=== PATIENT | male | born 1950 | race Caucasian/White ===

== ENCOUNTER 2018-06-19 19:28 | Inpatient (IN) | payer MEDICARE, SELFPAY ==
--- NOTE | 2018-06-19 10:40 | DI.CT.S_ITS ---
PROCEDURE: CT HEAD/BRAIN WO CON INDICATIONS: Decreased ability to move right arm TECHNIQUE: Noncontrast 4.5 mm thick angled axial sections acquired from the foramen magnum to the vertex, with coronal and sagittal reformats. For radiation dose reduction, the following was used: automated exposure control, adjustment of mA and/or kV according to patient size. COMPARISON: None. FINDINGS: Image quality: Excellent. CSF spaces: Basal cisterns are patent. No extra-axial fluid collections. The ventricles are symmetric in size and shape. Brain: No intracranial bleeds or masses. There is extensive cerebral volume loss for age, with resultant ventricular and sulcal prominence. There are periventricular and deep white matter chronic small vessel ischemic changes. There is intracranial internal carotid artery atherosclerosis. Skull and face: Calvarium and visualized facial bones appear intact, without suspicious lesions. Sinuses: Visualized sinuses and mastoids are clear. IMPRESSION: 1. No acute intracranial findings. This was discussed with MESSI Ward at 7:41 PM on 06/19/18. 2. Findings likely associated with chronic microvascular ischemic changes. Dictated by: Beverly Arndt M.D. on 06/19/2018 at 19:41 Approved by: Beverly Arndt M.D. on 06/19/2018 at 19:43
[2018-06-19 19:34] VITALS: BP 154/81; PULSE 68; RESP 18; TEMP 36.6; O2SAT 96
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
[2018-06-19 19:39] VITALS: BP 168/70; PULSE 82; RESP 19; TEMP 37.1; O2SAT 91; BMI 37.5
[2018-06-19 19:53] VITALS: BP 168/70; PULSE 95; RESP 18; O2SAT 93
[2018-06-19] MEDS: SODIUM CHLORIDE 0.9% 1,000 ML 150 ML IV (19:57)
[2018-06-19 19:59] LABS: Add Manual Diff / Slide Review NO; Basophils Percent Auto 0.9 % (0-2); Eosinophils Percent Auto 3.4 % (2-4); Hematocrit 45.8 % (41-53); Hemoglobin 16.1 g/dL (13.5-17.5); Lymphocytes Percent Auto 26.2 % (25-40); Mean Corpuscular HGB Conc 35.1 % (30-36); Mean Corpuscular Hemoglobin 35.8 PG (26-34); Mean Corpuscular Volume 102.1 fL (80-100); Monocytes Percent Auto 12.5 % (3-14); Neutrophils Absolute Auto 5500 /uL (1500-7000); Platelet Count 238 X10^3/uL (150-400); Red Blood Cell Count 4.48 X10^6/uL (4.5-5.9); Red Cell Distribution Width 12.2 % (11.6-14.8); White Blood Cell Count 9.7 X10^3/uL (4.5-11.0)
[2018-06-19 20:00] LABS: Prothrombin Time 11.3 SECONDS (10.1-12.7)
[2018-06-19 20:03] LABS: PTT Partial Thromboplastin Tim 27 SECONDS (26.4-36.2)
[2018-06-19 20:05] LABS: Blood Urea Nitrogen 12 mg/dL (9-20); Calcium 9.3 mg/dL (8.4-10.2); Carbon Dioxide 21 mmol/L (22-32); Chloride 105 mmol/L (98-107); Estimated Glomerular Filt Rate > 60.0 mL/min (>60); Glucose 124 mg/dL (80-110); HEMOLYSIS 32 (0-50); Potassium 4.3 mmol/L (3.4-5.1); Sodium 140 mmol/L (137-145)
[2018-06-19 21:00] VITALS: BP 172/87; PULSE 83; O2SAT 94
--- NOTE | 2018-06-19 21:47 | PC.NURSE ---
Patient ambulating without assistance to bathroom.
--- NOTE | 2018-06-19 22:48 | PC.NURSE ---
2029 Right leg strength continuing to improve. TPA ordered, but held at this time, due to symptom improvement. Provider is aware. Patient will be re-evaluated for continued improvement at 2144. Patient able to stand with some assistance.
[2018-06-19] MEDS: ASPIRIN 81 MG TAB 324 MG PO (22:54)
[2018-06-19 23:45] VITALS: BP 187/82; PULSE 82; RESP 22; TEMP 36.7; O2SAT 94
[2018-06-20] VITALS (11 sets, daily range): BP systolic 154–204; BP diastolic 60–99; PULSE 60–82; RESP 16–22; TEMP 36.3–36.7; O2SAT 95–98; BMI 37.5
--- NOTE | 2018-06-20 | DI.ECHO.S_ITS ---
[place] [facility]---------+ [facility] +---------+ : : [address] : : : : [id number] : : : : Phone: [phone]+ Echocardiogram Report + + :Name: EDGARDO SCHUMACHER Study Date: 06/20/2018 Height: 70 in : :[facility] Weight: 262 lb: : Gender: Male BSA: 2.3 m2 : :: 1950 Age: 67 yrs : :Reason For Study: MURMUR, TIA : : Performed By: Galdino Foely : :Referring: JOSE EDUARDO GORE : + + Interpretation Summary 1) Mild concentric left ventricular hypertrophy with normal size, wall motion, and systolic function (EF 65-70%). 2) Grossly normal right ventricular size and function. 3) Diastolic parameters suggest a pseudonormalization pattern, consistent with probable elevated filling pressures. 4) No significant valvular abnormalities. 5) The aortic root is borderline dilated at 4.1cm. 6) No prior Echo available for comparison. Procedure: A two-dimensional transthoracic echocardiogram with color flow and Doppler was performed. The study quality was technically difficult. A contrast injection of Definity was performed to improve assessment of LV function. There is no prior echocardiogram noted for this patient. The patient was in normal sinus rhythm during the exam. Left Ventricle: The left ventricle is normal in size. There is mild concentric left ventricular hypertrophy. The ejection fraction is estimated to be 65-70%. Left ventricular systolic function is normal. Left ventricular wall motion is normal. Diastolic parameters suggest a pseudonormalization pattern, consistent with probable elevated filling pressures. Right Ventricle: The right ventricle grossly appears normal in size with probable normal systolic function. Atria: Left atrial not well seen but it looks mildly enlarged grossly. The right atrium grossly appears normal in size. The interatrial septum is intact with no evidence for an atrial septal defect. Mitral Valve: The mitral valve is grossly normal. There is mild mitral regurgitation. Aortic Valve: The aortic valve is grossly normal. There is no aortic valve stenosis. No aortic regurgitation is present. Tricuspid Valve: The tricuspid valve is not well visualized, but is grossly normal. Pulmonary artery pressures cannot be estimated because of the lack of a measurable TR jet velocity. No tricuspid regurgitation. Pulmonic Valve: The pulmonic valve is not well visualized. Great Vessels: The aortic root is borderline dilated. The ascending aorta could not be visualized. The pulmonary artery is not well visualized, but is probably normal size. The IVC is of normal diameter and collapses greater than 50% with a sniff. This suggests a low right atrial pressure of 3 mm Hg. Pericardium/ Pleura There is no pericardial effusion. There is no pleural effusion. MMode/2D Measurements & Calculations LVIDd: 4.8 cm LVOT diam: 2.3 cm LVIDs: 3.2 cm Ao root diam: 4.1 cm FS: 32.8 % Ao Arch Diam (Prox Trans): 3.1 cm IVSd: 1.5 cm LVPWd: 1.4 cm LV braun. diameter/BSA (cm/m^2): 2.0 LV sys. diameter/BSA (cm/m^2): 1.4 LA A2 area: 20.6 cm2 RA long axis: 5.3 cm LA A4 area: 21.5 cm2 RA area: 15.6 cm2 LA length (vol): 5.8 cm RA vol: 39.3 ml LA vol: 64.8 ml RA : 16.8 ml/m2 LA vol index: 27.7 ml/m2 RVD1 (basal): 3.2 cm Doppler Measurements & Calculations Ao V2 max: 136.7 cm/sec LVOT Max Raad: 124.2 cm/sec Ao V2 mean: 99.4 cm/sec LV V1 max P.2 mmHg Ao max P.5 mmHg LV V1 VTI: 29.1 cm Ao mean P.4 mmHg CATHY(I,D): 4.1 cm2 Ao V2 VTI: 29.2 cm CATHY(V,D): 3.7 cm2 sev ratio: 1.00 CATHY indexed to BSA (cm^2/m^2): 1.8 MV E max raad: 63.3 cm/sec PA V2 max: 83.9 cm/sec MV A max raad: 87.8 cm/sec PA V2 mean: 65.4 cm/sec MV E/A: 0.72 PA mean P.7 mmHg Med Peak E' Raad: 4.2 cm/sec E/E' med: 15.0 Lat Peak E' Raad: 5.4 cm/sec E/E' lat: 11.8 E/e' average: 13.4 MV dec time: 0.20 sec SV(LVOT): 119.9 ml Reading Physician:12:48 PM
--- NOTE | 2018-06-20 | DI.MRI.S_ITS ---
PROCEDURE: MR BRAIN (IAC) WWO CON INDICATIONS: TIA, acute right north, resolved TECHNIQUE: Noncontrast sagittal T1 spin echo, axial FLAIR, axial gradient echo, axial diffusion and ADC through the brain. Axial thin-slice 3D CISS, coronal TruFISP, axial T1 spin echo with fat saturation through the internal auditory canals. After the administration of contrast, thin slice axial and coronal T1 spin echo with fat saturation through the internal auditory canals, and axial T1 spin echo with fat saturation through the brain. COMPARISON: [facility], CT, CT HEAD/BRAIN WO CON, 06/19/2018, 19:25. FINDINGS: Image quality: There is motion artifact limiting evaluation. Cerebellopontine angles: No cerebellopontine angle masses. Inner ear structures appear normally formed. No suspicious enhancement in the internal auditory canal or along the course of the 7th cranial nerve. CSF spaces: There is moderate cerebral volume loss with prominence of the ventricles and sulci. No extra-axial fluid collections. Basal cisterns are patent. Brain: There are small foci of cortical restricted diffusion in the left frontal lobe with corresponding mild T2 hyperintensity consistent with acute to early subacute infarcts. No evidence of associated hemorrhagic transformation or other intracranial hemorrhage. No intracranial mass or mass effect. Elsewhere, there are a few periventricular white matter T2 hyperintense foci consistent with mild chronic small vessel ischemic changes. Brainstem appears normal. Normal intravascular flow voids are present. Skull and face: Calvarial marrow signal is normal. Orbits appear normal. Sinuses: Sinuses and mastoids are clear. IMPRESSION: 1. 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 Findings discussed with Dr. Dickey on 06/20/18 at 11:15 AM. 2. Moderate cerebral volume loss and mild chronic white matter small vessel ischemic changes. Dictated by: Dariel Damon M.D. on 06/20/2018 at 11:09 Approved by: Dariel Damon M.D. on 06/20/2018 at 11:18
--- NOTE | 2018-06-20 00:52 | PM.HP.1 ---
History of Present Illness Date Patient Seen: 06/20/18 Time Patient Seen: 00:22 Chief complaint: lost use of right arm and leg Narrative: This is a 67-year-old male with a history of hypertension who presents to the ER with an acute onset of right-sided hemiparesis and visual changes. The patient's symptoms began at 5:30 p.m. with right upper extremity flaccidity, right lower extremity weakness and visual changes described as photosensitivity. Patient denies trauma injury or prodromal symptoms. The he has had no headache or hearing changes, denies neck pain chest pain or palpitations. Does have a history of hypertension is currently on propranolol and losartan. He denies history of hyperlipidemia and is on no lipid-lowering medication. In the ER the patient was evaluated in neurology consulted and tPA was mixed. The patient indicated he was feeling better and had regained movement of his right arm and leg albeit weak. The patient declined tPA with nate discussion with the ER physician indicating he could live with deficits that he has and does not wander risk complications from tPA. The patient's is with him at the time of evaluation, the patient regained much of his motor strength and denies paresthesias however appears to have slight residual facial droop. 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 Patient History Medical History Anxiety and depression (Acute) Bladder spasms (Acute) Degenerative disc disease, lumbar (Acute) Hypertension (Acute) Surgical History H/O left inguinal hernia repair (Acute) History of umbilical hernia repair (Acute) Family & Social History Family History: Reviewed 06/20/18 by MESSI Alonso Social History: Patient is and lives with his in a motor home. He has lived in intercourse for 10 years. His parents are and has no siblings. The patient reports consuming 2 drinks daily and smoking cigars. He denies recreational pharmaceuticals or using cannabis products. Advanced directive: Patient has no formal advanced directive however specifies his to be surrogate decision maker. Tobacco & Substance use: Smoking Status Current some day smoker alcohol intake frequency a few times a week Meds Home Medications Medication Instructions Recorded Confirmed Type buspirone 7.5 mg PO TID 06/19/18 06/19/18 History citalopram 40 mg PO DAILY 06/19/18 06/19/18 History losartan 50 mg PO DAILY 06/19/18 06/20/18 History oxybutynin chloride 5 mg PO DAILY 06/19/18 06/19/18 History propranolol 60 mg PO BID 06/19/18 06/19/18 History Allergies Allergy/AdvReac Type Severity Reaction Status Date / Time No Known Drug Allergies Allergy Verified 06/19/18 19:43 Review of Systems Review of Systems Constitutional: Denies fevers, chills, sweats, fatigue, good appetite with stable weight Eyes: Positive for visual changes that have resolved, Denies blurring vision, denies floaters, diplopia ENT: Denies hearing changes, ear pain, no nasal congestion, rhinorrhea, no dysphagia, sore throat or dentalgia, no neck stiffness or pain Respiratory: Denies SOB, cough, exertional dyspnea, wheezing Cardiovascular: Denies chest pain, palpitations, orthostatic dizziness, syncope, edema Gastrointestinal: Positive for heartburn, Denies abdominal pain, nausea or vomiting, no reflux symptoms or bloating, constipation or diarrhea, denies blood in stool. Genitourinary: Positive for urinary incontinence, weak stream, denies penile discharge, no complains of frequency, burning or urgency, hematuria on voiding Musculoskeletal: Positive for resolving weakness right upper and lower extremities, denies falls, cramps, edema, myalgia or joint swelling. Integumentary: denies skin lesions, masses, rashes, hives, itching or hair loss Neurological: denies dizziness, confusion, numbness or tingling, speech difficulties or seizures Psychiatric: Positive for history of depression and anxiety, denies disturbances in thought, attentions or mood, denies substance abuse Endocrine: denies excessive thirst or frequent urination, no goiter, lethargy, abnormal sweating, and heat/cold intolerance. Exam Vital Signs (past 8 hours): - 06/19/18 19:39 06/19/18 19:53 06/19/18 21:00 Temperature 98.8 F Pulse Rate 82 95 H 83 Respiratory Rate 19 18 Blood Pressure 168/70 H Blood Pressure [Right Arm] 168/70 H 172/87 H Pulse Oximetry 91 93 94 06/19/18 23:45 Temperature 98.1 F Pulse Rate 82 Respiratory Rate 22 Blood Pressure 187/82 H Blood Pressure [Right Arm] Pulse Oximetry 94 Oxygen Delivery Method Room Air Narrative Exam Narrative: General: Well developed, obese male, BMI 37.6, in no acute distress. Skin: Warm, dry, pink, decreased skin turgor, no rashes, no visible lesions HEENT: Normocephalic, PERRLA, EOMs intact without nystagmus, diplopia testing visual convergence, visual sanchez intact bilaterally by confrontation conjunctiva clear, sclera is anicteric, no facial tenderness, no ear pain, oropharynx is moist and pink without lesions or exudate, uvula midline, posterior pharynx without inflammation, no lymphadenopathy Neck: Supple, no masses, thyroid non tender without thyromegaly or nodules, trachea midline, no carotid bruits or JVD Cardiac: Regular rate and rhythm, S1-S2, 1/6 systolic murmur over the right upper sternal border, no gallops or rubs, 2+ radial pulse, 1+ dorsalis pedis pulse, no edema Chest: No pain on AP or lateral compression, symmetrical movement, breathing non labored, no cough present, BS equal bilateral without coarseness, crackles or wheezes Abdomen: Obese, round, soft, no tenderness or guarding, no masses or organomegaly, no flank or suprapubic pain, BS normal. Back: Normal curvature, no tenderness to palpation, no CVA tenderness on percussion Extremities: Full ROM, no synovial effusions or deformities, strength is grossly symmetrical at 5/5 bilateral upper extremities and left lower extremity, slight weakness right lower extremity, gait not assessed Neuro: AAOx4, speech is clear, swallowing mechanism intact, no ptosis, slight deficit 7th cranial nerve on the right, no pronator drift intact [id number] bilaterally Psych: pleasant, briskly responsive to questions, good eye contact, thought coherent, stable mood and congruent affect Objective Labs Result Diagrams: 06/19/18 19:45 06/19/18 19:45 Labs: Laboratory Results - last 24 hr 06/19/18 06/19/18 06/19/18 19:45 19:45 19:45 WBC 9.7 RBC 4.48 L Hgb 16.1 Hct 45.8 MCV 102.1 H MCH 35.8 H MCHC 35.1 RDW 12.2 Plt Count 238 Neut % (Auto) 57.0 Lymph % (Auto) 26.2 [place] % (Auto) 12.5 Eos % (Auto) 3.4 Baso % (Auto) 0.9 Neut # (Auto) 5500 PT 11.3 INR 1.0 APTT 27 Sodium 140 Potassium 4.3 Chloride 105 Carbon Dioxide 21 L BUN 12 Creatinine 1.00 Estimated GFR > 60.0 BUN/Creatinine Ratio 12.0 Glucose 124 H Calcium 9.3 Patient: Stephen Martinez MR#: [id number] : 1950 Acct:[id number] Age/Sex: 67 / M Date of Service: 06/19/18 Loc: ED Accession Number: [id number] Procedure: CT head/brain wo con Ordering Provider: Stephen Li PROCEDURE: CT HEAD/BRAIN WO CON INDICATIONS: Decreased ability to move right arm TECHNIQUE: Noncontrast 4.5 mm thick angled axial sections acquired from the foramen magnum to the vertex, with coronal and sagittal reformats. For radiation dose reduction, the following was used: automated exposure control, adjustment of mA and/or kV according to patient size. COMPARISON: None. FINDINGS: Image quality: Excellent. CSF spaces: Basal cisterns are patent. No extra-axial fluid collections. The ventricles are symmetric in size and shape. Brain: No intracranial bleeds or masses. There is extensive cerebral volume loss for age, with resultant ventricular and sulcal prominence. There are periventricular and deep white matter chronic small vessel ischemic changes. There is intracranial internal carotid artery atherosclerosis. Skull and face: Calvarium and visualized facial bones appear intact, without suspicious lesions. Sinuses: Visualized sinuses and mastoids are clear. IMPRESSION: 1. No acute intracranial findings. This was discussed with MESSI Ward at 7:41 PM on 06/19/18. 2. Findings likely associated with chronic microvascular ischemic changes. Dictated by: Beverly Arndt M.D. on 06/19/2018 at 19:41 Approved by: Beverly Arndt M.D. on 06/19/2018 at 19:43 Assessment & Plan Plan: Assessment/Plan Narrative: 1. Cerebrovascular event, acute -patient presents with dense right-sided hemiparesis and visual disturbance, -no prior history of cerebral or coronary disease -patient with resolving right side hemiparesis but continues to have slight right facial droop, slight right leg weakness -patient refused tPA in the ER with resolving symptoms -will obtain MRI with and without to include carotids, CT exam identifies atherosclerosis of internal carotid arteries -patient is currently NPO except for meds and ice chips -speech for swallow evaluation in the morning -PT and OT to evaluate 2. Hypertension, present on admission, uncontrolled -will allow permissive hypertension to keep pressures under 180 systolic -will continue with home medications of losartan and propranolol 3. Heart murmur, present on admission -patient with aortic murmur not previously diagnosed -will obtain echocardiogram 4. Anxiety, present on admission, stable -patient taking buspirone 3 times daily -will hold this medication and reassess in the morning 5. Depression, present on admission, stable -patient is taking citalopram at home which will be continued 6. Bladder spasms, present on admission, stable -patient describes symptoms of weak stream and incontinence -patient is taking oxybutynin which will be continued Additional orders will be entered as indicated Admission status: Inpatient Time Spent With Patient Time with patient: 25 - 35 minutes
[2018-06-20] MEDS: FAMOTIDINE 20 MG/50 ML PIGGYBACK 200 MG IV (01:15)
[2018-06-20] MEDS: PROPRANOLOL 40 MG TABLET 60 MG PO ×2 (01:15→20:24)
--- NOTE | 2018-06-20 01:37 | PC.NURSE ---
Pt. admitted to room 217, accompanied by his significant other Shiloh. Diagnosed with TIA. pt. A&O x3, denies any CP, PINO & other pain. But C/O acid reflux, Famotidine 20 mg. IVPB infusing & encouraged to keep HOB up @ least 20 degrees. C/O being tired & wants to sleep, states we normally goes to bed @ 10PM. MESSI Hernandez seen pt. @ bedside, pt. oriented to his room showed how to use his call light, TV & bed controls. Instructed not to get OOB without any assistance, will Cont. POC & monitor.
[2018-06-20 05:39] LABS: Add Manual Diff / Slide Review NO; Basophils Percent Auto 0.6 % (0-2); Eosinophils Percent Auto 2.1 % (2-4); Hematocrit 41.8 % (41-53); Hemoglobin 14.4 g/dL (13.5-17.5); Lymphocytes Percent Auto 29.5 % (25-40); Mean Corpuscular HGB Conc 34.6 % (30-36); Mean Corpuscular Hemoglobin 35.2 PG (26-34); Mean Corpuscular Volume 101.8 fL (80-100); Monocytes Percent Auto 10.9 % (3-14); Neutrophils Absolute Auto 5600 /uL (1500-7000); Neutrophils Percent Auto 56.9 % (50-75); Platelet Count 191 X10^3/uL (150-400); Red Cell Distribution Width 12.2 % (11.6-14.8); White Blood Cell Count 9.9 X10^3/uL (4.5-11.0)
[2018-06-20] MEDS: SODIUM CHLORIDE 0.9% 1,000 ML 150 ML IV (05:43)
[2018-06-20 05:44] LABS: Urine Amphetamines Negative (Negative); Urine Barbiturates Negative (Negative); Urine Benzodiazepines Negative (Negative); Urine Cocaine Negative (Negative); Urine MDMA Negative (Negative); Urine Methadone Negative (Negative); Urine Methamphetamines Negative (Negative); Urine Morphine/Opi cutoff 2000 Negative (Negative); Urine Oxycodone Negative (Negative); Urine Phencyclidine Negative (Negative); Urine Tetrahydrocannabinol Negative (Negative); Urine Tricyclic Antidepressant Negative (Negative)
[2018-06-20 06:03] LABS: BUN Creatinine Ratio 14.4 (6-22); Blood Urea Nitrogen 13 mg/dL (9-20); Calcium 8.5 mg/dL (8.4-10.2); Carbon Dioxide 24 mmol/L (22-32); Chloride 108 mmol/L (98-107); Cholesterol 143 mg/dL (140-199); Estimated Glomerular Filt Rate > 60.0 mL/min (>60); Glucose 107 mg/dL (80-110); HDL Cholesterol 26 mg/dL (40-60); HEMOLYSIS 19 (0-50); LDL Cholesterol Calculated 88 mg/dL (<100); Potassium 4.3 mmol/L (3.4-5.1); Sodium 141 mmol/L (137-145); Triglycerides 147 mg/dL (35-150)
--- NOTE | 2018-06-20 07:59 | PM.PN.1 ---
Subjective Date Patient Seen: 06/20/18 Interval history: The patient is resting in bed comfortably and in no acute distress. He or she denies headache, ear pain, rhinitis, sore throat, cough, shortness of breath, chest pain, abdominal pain, nausea, vomiting, fever, chills, dysuria, diarrhea or constipation. He or she is voiding and eliminating without difficulty. He or she is up ambulating without or with assistance. Exam Vital Signs (past 8 hours): - 06/20/18 00:16 06/20/18 04:47 06/20/18 07:00 Temperature 98.1 F 97.9 F Pulse Rate 82 68 Respiratory Rate 22 18 Blood Pressure 187/82 H 154/81 H Pulse Oximetry 97 96 95 06/20/18 07:44 Temperature Pulse Rate Respiratory Rate Blood Pressure Pulse Oximetry 97 Oxygen Delivery Method Room Air Objective Labs Result Diagrams: 06/20/18 05:08 06/20/18 05:08 Labs: Laboratory Results - last 24 hr 06/19/18 06/19/18 06/19/18 19:45 19:45 19:45 WBC 9.7 RBC 4.48 L Hgb 16.1 Hct 45.8 MCV 102.1 H MCH 35.8 H MCHC 35.1 RDW 12.2 Plt Count 238 Neut % (Auto) 57.0 Lymph % (Auto) 26.2 [place] % (Auto) 12.5 Eos % (Auto) 3.4 Baso % (Auto) 0.9 Neut # (Auto) 5500 PT 11.3 INR 1.0 APTT 27 Sodium 140 Potassium 4.3 Chloride 105 Carbon Dioxide 21 L BUN 12 Creatinine 1.00 Estimated GFR > 60.0 BUN/Creatinine Ratio 12.0 Glucose 124 H Calcium 9.3 Triglycerides Cholesterol LDL Cholesterol, Calc HDL Cholesterol Urine Opiates Screen Ur Oxycodone Screen Urine Methadone Screen Ur Barbiturates Screen U Tricyclic Antidepress Ur Phencyclidine Scrn Ur Amphetamines Screen U Methamphetamines Scrn Ur MDMA Scrn (Ecstasy) U Benzodiazepines Scrn Urine Cocaine Screen U Marijuana (THC) Screen 06/20/18 06/20/18 06/20/18 05:08 05:08 05:15 WBC 9.9 RBC 4.10 L Hgb 14.4 Hct 41.8 MCV 101.8 H MCH 35.2 H MCHC 34.6 RDW 12.2 Plt Count 191 Neut % (Auto) 56.9 Lymph % (Auto) 29.5 [place] % (Auto) 10.9 Eos % (Auto) 2.1 Baso % (Auto) 0.6 Neut # (Auto) 5600 PT INR APTT Sodium 141 Potassium 4.3 Chloride 108 H Carbon Dioxide 24 BUN 13 Creatinine 0.90 Estimated GFR > 60.0 BUN/Creatinine Ratio 14.4 Glucose 107 Calcium 8.5 Triglycerides 147 Cholesterol 143 LDL Cholesterol, Calc 88 HDL Cholesterol 26 L Urine Opiates Screen Negative Ur Oxycodone Screen Negative Urine Methadone Screen Negative Ur Barbiturates Screen Negative U Tricyclic Antidepress Negative Ur Phencyclidine Scrn Negative Ur Amphetamines Screen Negative U Methamphetamines Scrn Negative Ur MDMA Scrn (Ecstasy) Negative U Benzodiazepines Scrn Negative Urine Cocaine Screen Negative U Marijuana (THC) Screen Negative Quality VTE Deep Vein Thrombosis/Pulmonary Embolism Present on Admission: No
[2018-06-20] MEDS: ENOXAPARIN 40 MG/0.4 ML SYRINGE SUBCUT (08:55)
[2018-06-20] MEDS: CITALOPRAM 20 MG TABLET 40 MG PO (08:55)
[2018-06-20] MEDS: OXYBUTYNIN 5 MG ER TAB PO (08:55)
[2018-06-20] MEDS: ASPIRIN EC 81 MG TABLET PO (08:55)
[2018-06-20] MEDS: LOSARTAN 50 MG TABLET PO (08:55)
[2018-06-20] MEDS: LORazepam 1 MG TABLET PO (09:38)
--- NOTE | 2018-06-20 11:03 | CM.DANOTE ---
Addendum entered by Lucia Uriarte R.N. 06/20/18 12:28: Spoke to Ced, physical therapist. Just finished working with patient. He stated that he felt that patient could go home, had some weakness to leg, but should be able to manage at home. He did state that patient can use his cane, and does not need a walker. If patient is here for another day, physical therapy will work with him tomorrow as well. Original Note: DCP: Case received, EMR reviewed and went to meet with patient, but out of room having MRI. Introduced self and role to significant other, Shiloh. DCP template completed with information currently available. Patient is a 67 year old male who admitted yesterday evening to the care of the hospitalist team. PCP: Patient goes to [facility] on [address], no regular provider assigned as of yet, has seen P.A. there Payer: confirmed: Medicare. Patient came to hospital via family vehicle due to symptoms of loss of use to right arm and legs.Patient has history of HTN, depression, as well as anxiety. Patient is here for further testing, to rule out CVA versus TIA. Partner, Shiloh, lives with patient. Her phone number is: [phone]. Asked her if she was his POA, she stated, she wasn't sure, she is when he goes to [facility], for she has access to his records there. She stated that patient has been independent at home before this incident, but does not drive, due to history of DUI. She takes him to appts, etc. P: DCP to follow closely. Patient is having MRI today. Will also be working with physical therapy. Will collaborate with them to discuss plan, and if home will be appropriate for patient. Lucia Uriarte RN/Speech Language Pathologist
--- NOTE | 2018-06-20 12:20 | PT.IIE ---
Current Diagnoses Transient cerebral ischemic attack, unspecified (06/19/18) Surgical History (Last Updated 06/20/18 @ 00:54 by MESSI Alonso) H/O left inguinal hernia repair (Acute) History of umbilical hernia repair (Acute) Medical History (Last Updated 06/20/18 @ 00:54 by MESSI Alonso) Anxiety and depression (Acute) Bladder spasms (Acute) Degenerative disc disease, lumbar (Acute) Hypertension (Acute) Physical Therapy Inpatient Evaluation/Re-Eval M1 PT/OT-IP Prior Functional Status Start: 06/20/18 12:31 Freq: NEEDED Status: Active Protocol: Document 06/20/18 12:20 [facility] (Rec: 06/20/18 12:44 [facility] [id number]) Medical Review Prior Functional Status Medical History Reviewed Yes Mobility and Gait indep. community ambulator without device Activities of Daily Living and IADL's indep. ADLs Social History Household Members significant other Living Arrangements RV Number of Floors (Floors) One Floor Number of Stairs To Enter/Railing? 3 SE with rail on frame of RV Home Environment Standard Height Toilet Walk in Shower Home Equipment Straight Cane Additional Social History Comment Lives with significant other on [facility]. Pt is no longer driving but his does. His PCP just retired, he does not have a new one yet. Pt with onset R sided weakness UE and LE, along with facial droop and visual changes. Pt reports that his weakness is improved and vision is normal. MRI showed small acute cortical infarct in the L frontal lobe. M2 PT-IP Current Condition Start: 06/20/18 12:31 Freq: NEEDED Status: Active Protocol: Document 06/20/18 12:20 [facility] (Rec: 06/20/18 12:44 [facility] [id number]) Physical Therapy Current Condition Current Condition Evaluation Date 06/20/18 Treatment Diagnosis CVA, weakness M3 PT-IP Subjective Start: 06/20/18 12:31 Freq: NEEDED Status: Active Protocol: Document 06/20/18 12:20 [facility] (Rec: 06/20/18 12:44 [facility] [id number]) Subjective Physical Therapy Visit Type Type Initial Evaluation Visit Start Time 12:02 Visit Stop Time 12:20 Total Visit Minutes 18 Number of SALES SUPPORT ASSOCIATE Visits 0 Physical Therapy Visit Comments Patient Comments pt states his RLE is still weak but doing better overall Patient Goals to go home. Therapy Pain Assessment Pain Present Pain Present Denied Pain M4 PT-IP Mobility and Gait Start: 06/20/18 12:31 Freq: NEEDED Status: Active Protocol: Document 06/20/18 12:20 [facility] (Rec: 06/20/18 12:44 [facility] [id number]) PT-Bed Mobility Assessment Supine to Sit Supine to Sit Independent Scooting Scooting to Edge of Bed Independent PT-Transfer Assessment Sit to and From Stand Sit to and from Stand Independent Equipment Transfer Assistive Device Gait Belt Transfers Transfer Destination Chair Transfer Technique Stand Step Pivot Transfer Ability Level of Assist Standby Assistance Comments Mobility Comments pt sat on window seat to read the paper. RN assisted pt back to bed to start IV. Gait Assessment Gait Gait Assistance Required: Standby Assistance Distance (Feet) 25 Assistive Devices Assistive Device Gait Belt Gait Deviations General Gait Pattern Decreased Feet Clearance Wide Based Gait Factors Limiting Gait Function Factors Limiting Gait Function Decreased Activity Tolerance Decreased Strength Poor Balance Comments Gait Comments no loss of balance with gait and turning R and L. PT-Balance Assessment Sitting Balance and Reactions Static Sitting Balance Ability Good Dynamic Sitting Balance Ability Good Standing Balance and Reactions Static Standing Balance Ability Good Dynamic Standing Balance Ability Fair Device Used none Balance Tests Single Limb Standing unable Tandem Standing 2 sec L posterior, 1 sec R posterior Comments Other Balance Tests/Deviations/Treatment feet together EO and EC- good : M5 PT-IP Objective Assessments Start: 06/20/18 12:31 Freq: NEEDED Status: Active Protocol: Document 06/20/18 12:20 [facility] (Rec: 06/20/18 12:44 [facility] [id number]) Orientation Orientation/Cognition Level of Alertness Alert Gross Range of Motion Upper Extremity ROM Assessment Within Functional Limits Lower Extremity ROM Assessment Within Functional Limits Strength Upper Extremity Strength Assessment Within Functional Limits Lower Extremity Strength Assessment Right Impaired Hip flexion 4/5 R and 5/5 L Knee flexion 4/5 R and 5/5 L, extension 4/5 R and 5/5 L Ankle DF 3+/5 R and 5/5 L Coordination Assessment Assessment Finger to Nose Test Normal Performance Pronation/Supination Test Normal Performance Foot Tapping Test Minimal Impairment Heel on Esteves Test Normal Performance Sensation Assessment Sensation Gross Sensation WNL Muscle Tone Muscle Tone WNL Yes M6 PT-IP Treatment Start: 06/20/18 12:31 Freq: NEEDED Status: Active Protocol: Document 06/20/18 12:20 [facility] (Rec: 06/20/18 12:44 [facility] [id number]) Physical Therapy Treatment Education Education Provided Safety M7 PT-IP Assessment and Plan Start: 06/20/18 12:31 Freq: NEEDED Status: Active Protocol: Document 06/20/18 12:20 [facility] (Rec: 06/20/18 12:44 [facility] [id number]) PT Summary Assessment and Plan Potential Rehabilitation Potential Good Status of Condition at Evaluation Evolving Summary Impairments Strength Balance Coordination Gait Activity Tolerance Assessment Summary Pt able to ambulate without an assistive device this session , with increased lateral sway and wide LINDSEY, however no loss of balance. Pt able to perform sit to stand and bed mobility independently. He demonstrates RLE weakness compared to the L with MMT and mild impairment with alternating DF/PF movements of the R ankle. Pt unable to business support manager tandem or semi-tandem without loss of balance bilaterally. He is a strong candidate for outpatient physical therapy to progress his gait, standing balance, strength, and overall functional independence. Goals Transfer Goal Independent Gait Goal Standby Assistance Gait Distance 150 Other Goals up/down 3 steps with unilat. rail and SBA Days to Meet Goals 3 Frequency of Treatment Frequency Of Treatment Twice a Day Treatment Plan Physical Therapy Treatment Plan Bed Mobility Training Transfer Training Gait Training Therapeutic Exercise Balance Retraining Discharge Planning Neuromuscular Re-ed Other Recommendations and Next Treatment progress gait distance, stair Focus training, standing balance Recommendations To Nursing Amount of Assist Needed Standby Assistance Discharge Recommendations PT Discharge Recommendations Home with Assistance Outpatient PT
[2018-06-20] MEDS: BUSPIRONE 15 MG TABLET 7.5 MG PO ×2 (14:54→20:23)
[2018-06-20] MEDS: ATORVASTATIN 20 MG TABLET 40 MG PO (20:23)
--- NOTE | 2018-06-20 22:05 | PC.NURSE ---
1500- assumed are of pt. pt and cooperative and compliant. pt ate dinner. discussed stroke education, risk factors, how to modify diet. signs and symptoms, when to call 911, use of medications and reasons. Pt NIH 0- Pt cooperative. pt did accidentally pull out his IV. new Iv started. pt cooperative. uses urinal. calls when needing assistance. bed alarm on. side rails upx3 will continue to monitor.
--- NOTE | 2018-06-21 | DI.US.S_ITS ---
PROCEDURE: US CAROTID DOPPLER BI INDICATIONS: CVA TECHNIQUE: Color and pulse Doppler interrogation was performed of both carotid systems, with image documentation and velocity measurements. COMPARISON: [facility], MR, MR BRAIN (IAC) WWO CON, 06/20/2018, 9:13. [facility], CT, CT HEAD/BRAIN WO CON, 06/19/2018, 19:25. FINDINGS: Stenosis calculations are based on SRU (Society of Radiologists in Ultrasound) criteria. Right side: Brachial blood pressure: 158/74 mm Hg. Common carotid artery peak systolic velocity: 68 cm/sec. Internal carotid artery peak systolic velocity: 9 cm/sec. Internal carotid artery end diastolic velocity: 0 cm/sec. External carotid artery peak systolic velocity: 194 cm/sec. ICA/CCA peak systolic ratio: 0.13 Long scale imaging description: Atherosclerotic changes are seen, with shadowing calcification Percent internal carotid artery stenosis: Approaching 100%. Vertebral artery: Flow direction is antegrade. Left side: Brachial blood pressure: 167/83 mm Hg. Common carotid artery peak systolic velocity: 71 cm/sec. Internal carotid artery peak systolic velocity: 458 cm/sec. Internal carotid artery end diastolic velocity: 186 cm/sec. External carotid artery peak systolic velocity: 80 cm/sec. ICA/CCA peak systolic ratio: 6.4 Long scale imaging description: Atherosclerotic changes are seen, with shadowing calcification noted. Percent internal carotid artery stenosis: Greater than 70% Vertebral artery: Flow direction is antegrade. IMPRESSION: There is subtotal stenosis with trickle flow seen within the right internal carotid artery. There is a critical stenosis (greater than 70%) seen within the left proximal internal carotid artery. By velocity criteria, the stenosis within the right external carotid artery approaches 50%. Dictated by: Elias Taylor M.D. on 06/21/2018 at 9:13 Approved by: Elias Taylor M.D. on 06/21/2018 at 9:18
[2018-06-21 01:51] VITALS: O2SAT 94
[2018-06-21 05:01] VITALS: BP 150/86; PULSE 71; RESP 16; TEMP 36.3; O2SAT 95
--- NOTE | 2018-06-21 05:39 | PC.NURSE ---
Pt is A and O x 4, VSS. He has slept most of noc shift. NIH = 0. Denies pain and nausea. Sinus palak with PVCs on telemetry. LS clear. + BTs, UO clear yellow qs.
[2018-06-21 06:07] LABS: Alanine Aminotransferase 41 IU/L (21-72); Albumin 3.5 g/dL (3.5-5.0); Albumin Globulin Ratio 1.2 (1.0-2.8); Alkaline Phosphatase 55 U/L (38-126); Aspartate Aminotransferase 33 IU/L (17-59); BUN Creatinine Ratio 13.8 (6-22); Bilirubin Total 0.9 mg/dL (0.2-1.3); Blood Urea Nitrogen 11 mg/dL (9-20); Carbon Dioxide 26 mmol/L (22-32); Chloride 106 mmol/L (98-107); Estimated Glomerular Filt Rate > 60.0 mL/min (>60); Glucose 113 mg/dL (80-110); HEMOLYSIS 16 (0-50); Sodium 139 mmol/L (137-145); Total Protein 6.5 g/dL (6.3-8.2)
[2018-06-21 07:10] LABS: Hemoglobin A1C% w Est Avg Glu 5.3 % (4.0-6.0)
[2018-06-21 07:45] VITALS: BP 211/99; PULSE 75; RESP 18; TEMP 36.3; O2SAT 96
[2018-06-21] MEDS: OXYBUTYNIN 5 MG ER TAB PO (08:28)
[2018-06-21] MEDS: BUSPIRONE 15 MG TABLET 7.5 MG PO ×2 (08:28→14:43)
[2018-06-21] MEDS: ASPIRIN EC 81 MG TABLET PO (08:28)
[2018-06-21] MEDS: CITALOPRAM 20 MG TABLET 40 MG PO (08:28)
[2018-06-21] MEDS: ENOXAPARIN 40 MG/0.4 ML SYRINGE SUBCUT (08:28)
[2018-06-21 08:37] VITALS: O2SAT 96
[2018-06-21 09:15] VITALS: BP 158/74; BP 167/83
[2018-06-21] MEDS: METOPROLOL IR 25 MG TABLET PO (09:32)
--- NOTE | 2018-06-21 09:36 | CM.DPC ---
Addendum entered by LIZBET Bella 06/21/18 14:56: ADD: Per , working on pt transfer to higher level of care hospital due to his coronary medical needs. Plan: Patient to transfer hospitals for higher level of care today. LIZBET Bella Original Note: DCP Cont: Per MD, pt making progress and has scheduled ultrasound for today and pending results could likely d/c home tonight or tomorrow. Per PT, confirmed with MD that they are recommending outpt PT with d/c home with spouse assist. Plan: DCP to follow for likely d/c home with spouse tonight or tomorrow pending ultrasound today. No d/c needs at this time. LIZBET Bella
--- NOTE | 2018-06-21 09:50 | PT.IPTN ---
Current Diagnoses Transient cerebral ischemic attack, unspecified (06/19/18) Physical Therapy Treatment Note M2 PT-IP Current Condition Start: 06/20/18 12:31 Freq: NEEDED Status: Active Protocol: Document 06/20/18 12:20 [facility] (Rec: 06/20/18 12:44 [facility] [id number]) Physical Therapy Current Condition Current Condition Evaluation Date 06/20/18 Treatment Diagnosis CVA, weakness M3 PT-IP Subjective Start: 06/20/18 12:31 Freq: NEEDED Status: Active Protocol: Document 06/21/18 08:58 LJ (Rec: 06/21/18 09:48 LJ [email or web address]) Subjective Physical Therapy Visit Type Type Treatment Note Visit Start Time 08:58 Visit Stop Time 09:34 Total Visit Minutes 32 Notes Nursing in room taking BP. Doc stopped in to tell pt he could d/c today. Physical Therapy Visit Comments Patient Comments Ready to do stairs and walk in hallway M4 PT-IP Mobility and Gait Start: 06/20/18 12:31 Freq: NEEDED Status: Active Protocol: Document 06/21/18 08:58 LJ (Rec: 06/21/18 09:48 LJ [email or web address]) PT-Bed Mobility Assessment Supine to Sit Supine to Sit Independent Scooting Scooting to Edge of Bed Independent PT-Transfer Assessment Sit to and From Stand Sit to and from Stand Independent Equipment Transfer Assistive Device Gait Belt Transfers Transfer Destination Bed Toilet Transfer Ability Level of Assist Independent Comments Mobility Comments Pt independent with all bed mobility and toileting. Gait Assessment Gait Gait Assistance Required: Standby Assistance Distance (Feet) 200 Assistive Devices Assistive Device None Gait Deviations General Gait Pattern Decreased Feet Clearance Wide Based Gait Factors Limiting Gait Function Factors Limiting Gait Function Decreased Activity Tolerance Decreased Strength Poor Balance Comments Gait Comments Pt ambulated 50' to stairs. Ascended and descended x 2 using bilat rails then ambulated back to room WC following. Showed no LOB or fatigue. M5 PT-IP Objective Assessments Start: 06/20/18 12:31 Freq: NEEDED Status: Active Protocol: Document 06/20/18 12:20 RCC (Rec: 06/20/18 12:44 RCC [id number]) Orientation Orientation/Cognition Level of Alertness Alert Gross Range of Motion Upper Extremity ROM Assessment Within Functional Limits Lower Extremity ROM Assessment Within Functional Limits Strength Upper Extremity Strength Assessment Within Functional Limits Lower Extremity Strength Assessment Right Impaired Hip flexion 4/5 R and 5/5 L Knee flexion 4/5 R and 5/5 L, extension 4/5 R and 5/5 L Ankle DF 3+/5 R and 5/5 L Coordination Assessment Assessment Finger to Nose Test Normal Performance Pronation/Supination Test Normal Performance Foot Tapping Test Minimal Impairment Heel on Esteves Test Normal Performance Sensation Assessment Sensation Gross Sensation WNL Muscle Tone Muscle Tone WNL Yes M6 PT-IP Treatment Start: 06/20/18 12:31 Freq: NEEDED Status: Active Protocol: Document 06/21/18 09:48 LJ (Rec: 06/21/18 09:50 LJ [email or web address]) Physical Therapy Treatment Exercises Exercises Gluteal Sets Quad Sets Other Treatments Other Treatment Performed squats at counter x 5. M7 PT-IP Assessment and Plan Start: 06/20/18 12:31 Freq: NEEDED Status: Active Protocol: Document 06/21/18 08:58 LJ (Rec: 06/21/18 09:48 LJ [email or web address]) PT Summary Assessment and Plan Summary Assessment Summary Pt able to perform safe transfers w/o assistive device . WC following from room to stairs for safety but pt did not need assistance returning to room from stairs. Abmulated at a normal pace using WBOS. Foot clearance slightly diminished. No signs of fatigue or LOB Recommendations To Nursing Amount of Assist Needed Standby Assistance Discharge Recommendations PT Discharge Recommendations Home with Assistance Outpatient PT
--- NOTE | 2018-06-21 10:33 | PC.NURSE ---
Patient denies pain this morning. Up in room with standby assistance. Blood pressure elevated again upon waking this morning and Dr. Dickey notified. New blood pressure medications started (metoprolol 25mg po BID) per md orders, and patient educated on medications and monitored. Patient states understanding and has no further questions or concerns at this time. Patient reports he does not have cravings for cigars, and plans to quit. Education and handouts given on smoking cessation, and left at bedside for patient to also review with . Sinus rhythm on telemetry. Call light and urinal within reach. Bed alarm on for safety. Continue to monitor.
--- NOTE | 2018-06-21 11:40 | OT.IP.TRT ---
Current Diagnoses Transient cerebral ischemic attack, unspecified (06/19/18) Occupational Therapy Treatment Note M3 OT- IP Subjective and Pain Start: 06/21/18 11:38 Freq: Status: Active Protocol: Document 06/21/18 11:39 [facility] (Rec: 06/21/18 11:40 [facility] [id number]) OT- Subjective Occupational Therapy Visit Type Type Patient Refusal Notes Pt states able to do all his ADL's and feels does not have any mentation issues and feels that OT eval not needed. Pt's S.O. does the bills, medications, cooking, and cleaning and to be able to assist pt as needed. Therefore discharge OT eval orders.
--- NOTE | 2018-06-21 13:21 | PM.DS.1 ---
History of Present Illness Date Patient Seen: 06/20/18 Chief complaint: lost use of right arm and leg Narrative: This is a 67-year-old male with a history of hypertension who presents to the ER with an acute onset of right-sided hemiparesis and visual changes. The patient's symptoms began at 5:30 p.m. with right upper extremity flaccidity, right lower extremity weakness and visual changes described as photosensitivity. Patient denies trauma injury or prodromal symptoms. The he has had no headache or hearing changes, denies neck pain chest pain or palpitations. Does have a history of hypertension is currently on propranolol and losartan. He denies history of hyperlipidemia and is on no lipid-lowering medication. In the ER the patient was evaluated in neurology consulted and tPA was mixed. The patient indicated he was feeling better and had regained movement of his right arm and leg albeit weak. The patient declined tPA with nate discussion with the ER physician indicating he could live with deficits that he has and does not wander risk complications from tPA. The patient's is with him at the time of evaluation, the patient regained much of his motor strength and denies paresthesias however appears to have slight residual facial droop. Speech is clear, patient can swallow, pronator drift is negative, slipper maker are strong bilaterally, slight residual weakness right lower extremity with lifting and holding leg off the bed. Discharge Providers Date of admission: 06/19/18 22:15 Consults: 06/20/18 00:24 Consult to Discharge Planning Routine Comment: 06/20/18 00:48 Consult to Physical Therapy Evaluate & Treat Comment: TIA vs CVA Physician Instructions: Evaluate and Treat 06/20/18 00:49 Consult to Occupational Therapy Evaluate & Treat Comment: CVA vs TIA Physician Instructions: Evaluate and treat 06/20/18 00:50 Consult to Speech Therapy Evaluate & Treat Comment: swallow eval, CVA vs TIA Physician Instructions: Evaluate and treat Discharge provider: Lauryn Dickey DO Discharge Date: 06/21/18 Summary Hospital Course: Stephen Martinez is a 67-year-old male with a past medical history significant for hypertension, tobacco use disorder, and probable obstructive sleep apnea who 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 [facility] neurology was teleconferenced and the patient was to receive tPA, however, his symptoms vastly improved with his right upper extremity paresis resolved with residual right lower extremity weakness. 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 He was started on aspirin 81 mg daily and atorvastatin 40 mg daily at bedtime. Carotid ultrasound performed this morning demonstrated subtotal stenosis with trickle flow seen within the right internal carotid artery and critical stenosis greater than 70% seen within the left proximal internal carotid artery. Discussed management with Dr. Ford a General surgery who recommended transfer to tertiary center for vascular intervention. Discussed case with Dr. Medina of a vascular surgery who agrees to consult on patient and Dr. Griffin of [facility] who agrees to accept patient. Status at Discharge Overall status at discharge: patient is progressing back to baseline Time Spent with Patient Greater than 30 minutes Exam Vital Signs (past 8 hours): - 06/21/18 07:45 06/21/18 08:37 06/21/18 09:15 Temperature 97.4 F L Pulse Rate 75 Respiratory Rate 18 Blood Pressure 211/99 H 167/83 H Pulse Oximetry 96 96 Oxygen Delivery Method Room Air Narrative Exam Narrative: General: Middle-aged gentleman lying in bed and in no acute distress, well-developed, well-nourished, appropriately interactive. HEENT: Normocephalic, atraumatic. External ears without defect. Pupils equal, round, and reactive to light and accommodation. Anicteric sclerae, moist conjunctivae, and no lid lag. Neck: Supple with full range of motion. No jugular venous distension. Left bruit. No lymphadenopathy or thyromegaly. Cardiovascular: Regular rate and rhythm without murmurs, rubs, or gallops appreciated. Pulmonary: Clear to auscultation bilaterally without crackles, wheezes, or rhonchi. Normal respiratory effort with no use of accessory muscles. Abdomen: Soft, obese, bowel sounds present, nontender, nondistended. No hepatosplenomegaly or masses appreciated. Extremities: No clubbing, cyanosis, or edema. Skin: Normal temperature, turgor, and texture; no rash, ulcers, or subcutaneous nodules appreciated. Neurological: Residual right-sided lower extremity weakness +4/5. Normal muscle strength +5/5 in bilateral upper extremities and left lower extremity. AAOx4, speech is clear, swallowing mechanism intact, no ptosis, no facial droop, no pronator drift and intact cerebellar function with [id number] and [id number] bilaterally. Psychiatric: Normal mood and affect. Alert and oriented to person, place, and time. MR BRAIN (IAC) WWO CON INDICATIONS: TIA, acute right north, resolved TECHNIQUE: Noncontrast sagittal T1 spin echo, axial FLAIR, axial gradient echo, axial diffusion and ADC through the brain. Axial thin-slice 3D CISS, coronal TruFISP, axial T1 spin echo with fat saturation through the internal auditory canals. After the administration of contrast, thin slice axial and coronal T1 spin echo with fat saturation through the internal auditory canals, and axial T1 spin echo with fat saturation through the brain. COMPARISON: [facility], CT, CT HEAD/BRAIN WO CON, 06/19/2018, 19:25. FINDINGS: Image quality: There is motion artifact limiting evaluation. Cerebellopontine angles: No cerebellopontine angle masses. Inner ear structures appear normally formed. No suspicious enhancement in the internal auditory canal or along the course of the 7th cranial nerve. CSF spaces: There is moderate cerebral volume loss with prominence of the ventricles and sulci. No extra-axial fluid collections. Basal cisterns are patent. Brain: There are small foci of cortical restricted diffusion in the left frontal lobe with corresponding mild T2 hyperintensity consistent with acute to early subacute infarcts. No evidence of associated hemorrhagic transformation or other intracranial hemorrhage. No intracranial mass or mass effect. Elsewhere, there are a few periventricular white matter T2 hyperintense foci consistent with mild chronic small vessel ischemic changes. Brainstem appears normal. Normal intravascular flow voids are present. Skull and face: Calvarial marrow signal is normal. Orbits appear normal. Sinuses: Sinuses and mastoids are clear. IMPRESSION: 1. 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 Findings discussed with Dr. Dickey on 06/20/18 at 11:15 AM. 2. Moderate cerebral volume loss and mild chronic white matter small vessel ischemic changes. Dictated by: Dariel Damon M.D. on 06/20/2018 at 11:09 Approved by: Dariel Damon M.D. on 06/20/2018 at 11:18 US CAROTID DOPPLER BI INDICATIONS: CVA TECHNIQUE: Color and pulse Doppler interrogation was performed of both carotid systems, with image documentation and velocity measurements. COMPARISON: [facility], MR, MR BRAIN (IAC) WWO CON, 06/20/2018, 9:13. [facility], CT, CT HEAD/BRAIN WO CON, 06/19/2018, 19:25. FINDINGS: Stenosis calculations are based on SRU (Society of Radiologists in Ultrasound) criteria. Right side: Brachial blood pressure: 158/74 mm Hg. Common carotid artery peak systolic velocity: 68 cm/sec. Internal carotid artery peak systolic velocity: 9 cm/sec. Internal carotid artery end diastolic velocity: 0 cm/sec. External carotid artery peak systolic velocity: 194 cm/sec. ICA/CCA peak systolic ratio: 0.13 Long scale imaging description: Atherosclerotic changes are seen, with shadowing calcification Percent internal carotid artery stenosis: Approaching 100%. Vertebral artery: Flow direction is antegrade. Left side: Brachial blood pressure: 167/83 mm Hg. Common carotid artery peak systolic velocity: 71 cm/sec. Internal carotid artery peak systolic velocity: 458 cm/sec. Internal carotid artery end diastolic velocity: 186 cm/sec. External carotid artery peak systolic velocity: 80 cm/sec. ICA/CCA peak systolic ratio: 6.4 Long scale imaging description: Atherosclerotic changes are seen, with shadowing calcification noted. Percent internal carotid artery stenosis: Greater than 70% Vertebral artery: Flow direction is antegrade. IMPRESSION: There is subtotal stenosis with trickle flow seen within the right internal carotid artery. There is a critical stenosis (greater than 70%) seen within the left proximal internal carotid artery. By velocity criteria, the stenosis within the right external carotid artery approaches 50%. Dictated by: Elias Taylor M.D. on 06/21/2018 at 9:13 Approved by: Elias Taylor M.D. on 06/21/2018 at 9:18 Objective Labs Result Diagrams: 06/20/18 05:08 06/21/18 05:26 Labs: Laboratory Results - last 24 hr 06/21/18 06/21/18 05:26 05:27 Sodium 139 Potassium 4.0 Chloride 106 Carbon Dioxide 26 BUN 11 Creatinine 0.80 Estimated GFR > 60.0 BUN/Creatinine Ratio 13.8 Glucose 113 H Hemoglobin A1c 5.3 Calcium 9.0 Total Bilirubin 0.9 AST 33 ALT 41 Alkaline Phosphatase 55 Total Protein 6.5 Albumin 3.5 Globulin 3.0 Albumin/Globulin Ratio 1.2 Discharge Plan Discharge Plan Patient Disposition: [facility] Transfer to: [facility] Under care of provider: Dr. Griffin, hospital medicine and consulting Dr. Medina, vascular surgery Discharge Med Rec/Prescriptions Prescriptions: New atorvastatin [Lipitor] 20 mg Tablet 40 mg PO BEDTIME Qty: 1 RF: 0 aspirin 81 mg Tablet,Delayed Release (Dr/Ec) 81 mg PO DAILY Qty: 1 RF: 0 enoxaparin [Lovenox] 40 mg/0.4 mL Syringe 40 mg subcut DAILY Qty: 1 RF: 0 metoprolol tartrate 25 mg Tablet 25 mg PO BID Qty: 1 RF: 0 Continue citalopram 40 mg Tablet 40 mg PO DAILY RF: 0 oxybutynin chloride 5 mg Tablet Extended Release 24hr 5 mg PO DAILY RF: 0 buspirone 15 mg Tablet 7.5 mg PO TID RF: 0 Changed losartan 50 mg Tablet 50 mg PO QPM Qty: 0 RF: 0 Discontinued propranolol 40 mg Tablet 60 mg PO BID RF: 0 Discharge Orders: Discharge (Order); Ordered 06/21/18 Ordered By: Lauryn Dickey Discharge Health Status Multidrug resistant organism: No MDRO Precautions: [place] Provider Discharge Instructions Diet: Low-sodium and Low-cholesterol Food texture: Regular Activity: Up ambulating with walker and PT assistance Visit Report/Discharge Packet Instructions: Tips to Help You Stop Smoking, DI for Stroke-Ischemic, How to Quit Smoking Discharge Data Attending Provider: Edgardo Hernandez Admit Date/Time: 06/19/18 22:15 Quality VTE Deep Vein Thrombosis/Pulmonary Embolism Present on Admission: No
--- NOTE | 2018-06-21 13:24 | P.DS_ITS ---
History of Present Illness Date Patient Seen: 06/20/18 Chief complaint: lost use of right arm and leg Narrative: This is a 67-year-old male with a history of hypertension who presents to the ER with an acute onset of right-sided hemiparesis and visual changes. The patient's symptoms began at 5:30 p.m. with right upper extremity flaccidity, right lower extremity weakness and visual changes described as photosensitivity. Patient denies trauma injury or prodromal symptoms. The he has had no headache or hearing changes, denies neck pain chest pain or palpitations. Does have a history of hypertension is currently on propranolol and losartan. He denies history of hyperlipidemia and is on no lipid-lowering medication. In the ER the patient was evaluated in neurology consulted and tPA was mixed. The patient indicated he was feeling better and had regained movement of his right arm and leg albeit weak. The patient declined tPA with nate discussion with the ER physician indicating he could live with deficits that he has and does not wander risk complications from tPA. The patient's is with him at the time of evaluation, the patient regained much of his motor strength and denies paresthesias however appears to have slight residual facial droop. 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 Discharge Providers Date of admission: 06/19/18 22:15 Consults: 06/20/18 00:24 Consult to Discharge Planning Routine Comment: 06/20/18 00:48 Consult to Physical Therapy Evaluate & Treat Comment: TIA vs CVA Physician Instructions: Evaluate and Treat 06/20/18 00:49 Consult to Occupational Therapy Evaluate & Treat Comment: CVA vs TIA Physician Instructions: Evaluate and treat 06/20/18 00:50 Consult to Speech Therapy Evaluate & Treat Comment: swallow eval, CVA vs TIA Physician Instructions: Evaluate and treat Discharge provider: Lauryn Dickey DO Discharge Date: 06/21/18 Summary Hospital Course: Stephen Martinez is a 67-year-old male with a past medical history significant for hypertension, tobacco use disorder, and probable obstructive sleep apnea who presented to [facility] in the polarity tester of 06/20/2018 for right-sided hemiparesis. [facility] neurology was teleconferenced and the patient was to receive tPA, however, his symptoms vastly improved with his right upper extremity paresis resolved with residual right lower extremity weakness. 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 He was started on aspirin 81 mg daily and atorvastatin 40 mg daily at bedtime. Carotid ultrasound performed this morning demonstrated subtotal stenosis with trickle flow seen within the right internal carotid artery and critical stenosis greater than 70% seen within the left proximal internal carotid artery. Discussed management with Dr. Ford a General surgery who recommended transfer to tertiary center for vascular intervention. Discussed case with Dr. Medina of a vascular surgery who agrees to consult on patient and Dr. Griffin of [facility] who agrees to accept patient. Status at Discharge Overall status at discharge: patient is progressing back to baseline Time Spent with Patient Greater than 30 minutes Exam Vital Signs (past 8 hours): - 06/21/18 07:45 06/21/18 08:37 06/21/18 09:15 Temperature 97.4 F L Pulse Rate 75 Respiratory Rate 18 Blood Pressure 211/99 H 167/83 H Pulse Oximetry 96 96 Oxygen Delivery Method Room Air Narrative Exam Narrative: General: Middle-aged gentleman lying in bed and in no acute distress, well- developed, well-nourished, appropriately interactive. HEENT: Normocephalic, atraumatic. External ears without defect. Pupils equal, round, and reactive to light and accommodation. Anicteric sclerae, moist conjunctivae, and no lid lag. Neck: Supple with full range of motion. No jugular venous distension. Left bruit. No lymphadenopathy or thyromegaly. Cardiovascular: Regular rate and rhythm without murmurs, rubs, or gallops appreciated. Pulmonary: Clear to auscultation bilaterally without crackles, wheezes, or rhonchi. Normal respiratory effort with no use of accessory muscles. Abdomen: Soft, obese, bowel sounds present, nontender, nondistended. No hepatosplenomegaly or masses appreciated. Extremities: No clubbing, cyanosis, or edema. Skin: Normal temperature, turgor, and texture; no rash, ulcers, or subcutaneous nodules appreciated. Neurological: Residual right-sided lower extremity weakness +4/5. Normal muscle strength +5/5 in bilateral upper extremities and left lower extremity. AAOx4, speech is clear, swallowing mechanism intact, no ptosis, no facial droop , no pronator drift and intact cerebellar function with [id number] and heel- to-edwards bilaterally. Psychiatric: Normal mood and affect. Alert and oriented to person, place, and time. MR BRAIN (IAC) WWO CON INDICATIONS: TIA, acute right north, resolved TECHNIQUE: Noncontrast sagittal T1 spin echo, axial FLAIR, axial gradient echo, axial diffusion and ADC through the brain. Axial thin-slice 3D CISS, coronal TruFISP, axial T1 spin echo with fat saturation through the internal auditory canals. After the administration of contrast, thin slice axial and coronal T1 spin echo with fat saturation through the internal auditory canals, and axial T1 spin echo with fat saturation through the brain. COMPARISON: [facility], CT, CT HEAD/BRAIN WO CON, 06/19/2018, 19:25. FINDINGS: Image quality: There is motion artifact limiting evaluation. Cerebellopontine angles: No cerebellopontine angle masses. Inner ear structures appear normally formed. No suspicious enhancement in the internal auditory canal or along the course of the 7th cranial nerve. CSF spaces: There is moderate cerebral volume loss with prominence of the ventricles and sulci. No extra-axial fluid collections. Basal cisterns are patent. Brain: There are small foci of cortical restricted diffusion in the left frontal lobe with corresponding mild T2 hyperintensity consistent with acute to early subacute infarcts. No evidence of associated hemorrhagic transformation or other intracranial hemorrhage. No intracranial mass or mass effect. Elsewhere, there are a few periventricular white matter T2 hyperintense foci consistent with mild chronic small vessel ischemic changes. Brainstem appears normal. Normal intravascular flow voids are present. Skull and face: Calvarial marrow signal is normal. Orbits appear normal. Sinuses: Sinuses and mastoids are clear. IMPRESSION: 1. 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 Findings discussed with Dr. Dickey on 06/20/18 at 11:15 AM. 2. Moderate cerebral volume loss and mild chronic white matter small vessel ischemic changes. Dictated by: Dariel Damon M.D. on 06/20/2018 at 11:09 Approved by: Dariel Damon M.D. on 06/20/2018 at 11:18 US CAROTID DOPPLER BI INDICATIONS: CVA TECHNIQUE: Color and pulse Doppler interrogation was performed of both carotid systems, with image documentation and velocity measurements. COMPARISON: [facility], MR, MR BRAIN (IAC) WWO CON, 06/20/2018, 9:13. [facility], CT, CT HEAD/BRAIN WO CON, 06/19/2018, 19:25. FINDINGS: Stenosis calculations are based on SRU (Society of Radiologists in Ultrasound) criteria. Right side: Brachial blood pressure: 158/74 mm Hg. Common carotid artery peak systolic velocity: 68 cm/sec. Internal carotid artery peak systolic velocity: 9 cm/sec. Internal carotid artery end diastolic velocity: 0 cm/sec. External carotid artery peak systolic velocity: 194 cm/sec. ICA/CCA peak systolic ratio: 0.13 Long scale imaging description: Atherosclerotic changes are seen, with shadowing calcification Percent internal carotid artery stenosis: Approaching 100%. Vertebral artery: Flow direction is antegrade. Left side: Brachial blood pressure: 167/83 mm Hg. Common carotid artery peak systolic velocity: 71 cm/sec. Internal carotid artery peak systolic velocity: 458 cm/sec. Internal carotid artery end diastolic velocity: 186 cm/sec. External carotid artery peak systolic velocity: 80 cm/sec. ICA/CCA peak systolic ratio: 6.4 Long scale imaging description: Atherosclerotic changes are seen, with shadowing calcification noted. Percent internal carotid artery stenosis: Greater than 70% Vertebral artery: Flow direction is antegrade. IMPRESSION: There is subtotal stenosis with trickle flow seen within the right internal carotid artery. There is a critical stenosis (greater than 70%) seen within the left proximal internal carotid artery. By velocity criteria, the stenosis within the right external carotid artery approaches 50%. Dictated by: Elias Taylor M.D. on 06/21/2018 at 9:13 Approved by: Elias Taylor M.D. on 06/21/2018 at 9:18 Objective Labs Result Diagrams: 06/20/18 05:08 06/21/18 05:26 Labs: Laboratory Results - last 24 hr 06/21/18 06/21/18 05:26 05:27 Sodium 139 Potassium 4.0 Chloride 106 Carbon Dioxide 26 BUN 11 Creatinine 0.80 Estimated GFR > 60.0 BUN/Creatinine Ratio 13.8 Glucose 113 H Hemoglobin A1c 5.3 Calcium 9.0 Total Bilirubin 0.9 AST 33 ALT 41 Alkaline Phosphatase 55 Total Protein 6.5 Albumin 3.5 Globulin 3.0 Albumin/Globulin Ratio 1.2 Discharge Plan Discharge Plan Patient Disposition: [facility] Transfer to: [facility] Under care of provider: Dr. Griffin, hospital medicine and consulting Dr. Medina, vascular surgery Discharge Med Rec/Prescriptions Prescriptions: New atorvastatin [Lipitor] 20 mg Tablet 40 mg PO BEDTIME Qty: 1 RF: 0 aspirin 81 mg Tablet,Delayed Release (Dr/Ec) 81 mg PO DAILY Qty: 1 RF: 0 enoxaparin [Lovenox] 40 mg/0.4 mL Syringe 40 mg subcut DAILY Qty: 1 RF: 0 metoprolol tartrate 25 mg Tablet 25 mg PO BID Qty: 1 RF: 0 Continue citalopram 40 mg Tablet 40 mg PO DAILY RF: 0 oxybutynin chloride 5 mg Tablet Extended Release 24hr 5 mg PO DAILY RF: 0 buspirone 15 mg Tablet 7.5 mg PO TID RF: 0 Changed losartan 50 mg Tablet 50 mg PO QPM Qty: 0 RF: 0 Discontinued propranolol 40 mg Tablet 60 mg PO BID RF: 0 Discharge Orders: Discharge (Order); Ordered 06/21/18 Ordered By: Lauryn Dickey Discharge Health Status Multidrug resistant organism: No MDRO Precautions: [place] Provider Discharge Instructions Diet: Low-sodium and Low-cholesterol Food texture: Regular Activity: Up ambulating with walker and PT assistance Visit Report/Discharge Packet Instructions: Tips to Help You Stop Smoking, DI for Stroke-Ischemic, How to Quit Smoking Discharge Data Attending Provider: Edgardo Hernandez Admit Date/Time: 06/19/18 22:15 Quality VTE Deep Vein Thrombosis/Pulmonary Embolism Present on Admission: No
--- NOTE | 2018-06-21 14:28 | PC.NURSE ---
3252 Report was called to Giovanny NICE at [place] ([phone]). Questions answers. Paperwork packet ready. Patient picked up by ambulance. Patient's [place] at bedside and aware of transfer. IV left in place, for transfer. Patient left with VSS, no complaints of pain, neuro intact.
== END 2018-06-21 14:50 | disposition short-term general hospital (02) | DRG 65 ==
LOC: ED 21:12 → AC 22:16
PROVIDERS: Internal Medicine; Admitting Provider Nurse Practitioner Adult Health; Emergency Provider Emergency Medicine; Visit Provider Nurse Practitioner Adult Health
DX: I63.232 Cerebral infarction due to unspecified occlusion or stenosis of left carotid arteries (principal); G81.91 Hemiplegia, unspecified affecting right dominant side; H53.9 Unspecified visual disturbance; R29.701 NIHSS score 1; I10 Essential (primary) hypertension; I35.8 Other nonrheumatic aortic valve disorders; N32.89 Other specified disorders of bladder; G47.33 Obstructive sleep apnea (adult) (pediatric); F17.210 Nicotine dependence, cigarettes, uncomplicated
CPT/HCPCS: 36415; 36591; 70450; 70553; 80048; 80053; 80061; 80305; 82962; 83036; 85025; 85610; 85730; 93005; 93306; 93880; 94762; 96360; 96361; 97116; 97162; 99284; 99285; 99291; 99406; A9579; J1650; Q9957

== ENCOUNTER → 2023-10-08 15:03 | Outpatient (CLI) | payer MEDICARE, SELFPAY ==
[2018-06-20 00:07] VITALS: BMI 37.5
--- NOTE | 2023-10-08 | DI.US.S_ITS ---
PROCEDURE: US CAROTID DOPPLER BI INDICATIONS: Left carotid bruit; history of CVA TECHNIQUE: Color and pulse Doppler interrogation was performed of both carotid systems, with image documentation and velocity measurements. COMPARISON: [facility], , US CAROTID DOPPLER BI, 06/21/2018, 8:47. FINDINGS: Stenosis calculations are based on SRU (Society of Radiologists in Ultrasound) criteria. Right side: Brachial blood pressure: 108/58 mm Hg. Common carotid artery peak systolic velocity: 10 cm/sec. Internal carotid artery peak systolic velocity: Occluded Internal carotid artery end diastolic velocity: Occluded External carotid artery peak systolic velocity: Retrograde flow is noted. ICA/CCA peak systolic ratio: Not applicable. Long scale imaging description: The common carotid and the internal carotid are occluded. Retrograde flow within the external carotid artery suggests collateral perfusion. Percent internal carotid artery stenosis: Occluded. Vertebral artery: No flow visualized. Left side: Brachial blood pressure: 94/62 mm Hg. Common carotid artery peak systolic velocity: 103 cm/sec. Internal carotid artery peak systolic velocity: 159 cm/sec. Internal carotid artery end diastolic velocity: 23 cm/sec. External carotid artery peak systolic velocity: 114 cm/sec. ICA/CCA peak systolic ratio: 1.6. Long scale imaging description: Dense atheromatous calcifications are noted within the bifurcation. The visualized portions of the cervical internal carotid artery are markedly tortuous. Percent internal carotid artery stenosis: 50-69% stenosis. Vertebral artery: Flow direction is antegrade. IMPRESSION: 1. 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 2. Retrograde flow noted within the right external carotid artery suggesting collateralized flow. 3. No flow is visualized within the right vertebral artery which may also be occluded. 4. 50-69% stenosis of the left internal carotid artery. Dictated by: Beverly Arndt M.D. on 10/08/2023 at 16:27 Approved by: Beverly Arndt M.D. on 10/08/2023 at 16:34
== END ==
PROVIDERS: PCP Nurse Practitioner Family; Referring Provider Nurse Practitioner Family; Visit Provider Nurse Practitioner Family
DX: R09.89 Other specified symptoms and signs involving the circulatory and respiratory systems (principal); I65.23 Occlusion and stenosis of bilateral carotid arteries; Z86.73 Personal history of transient ischemic attack (TIA), and cerebral infarction without residual deficits
CPT/HCPCS: 93880